=== PATIENT | male | born 1990 | race Caucasian/White ===

== ENCOUNTER 2018-08-04 11:33 | Emergency (ER) | payer SELFPAY ==
[~2018-08-04] VITALS: Ht 175.3 cm; Wt 60.5 kg
[2018-08-04 11:53] VITALS: BP 108/59
[2018-08-04] MEDS ORDERED: FLUORESCEIN OPHTHALMIC 1 MG STRIP ONE (12:20)
[2018-08-04] MEDS ORDERED: PROPARACAINE OPHTH 0.5%, 15ML ONE (12:20)
[2018-08-04] MEDS ORDERED: PROPARACAINE OPHTH 0.5%, 15ML EACHEYE ONE (12:30)
[2018-08-04] MEDS ORDERED: FLUORESCEIN OPHTHALMIC 1 MG STRIP EACHEYE ONE (12:30)
--- NOTE | 2018-08-04 12:44 | NUR ---
EYES BURNING AND BOTHERS PT GOING OUTDOORS SINCE SUNDAY. PA EVAL OF EYES WITH WILEY LAMP COMPLETED.
== END 2018-08-04 13:04 | disposition home or self-care (01) ==
LOC: ED 12:17
DX: H10.13 Acute atopic conjunctivitis, bilateral (principal)
CPT/HCPCS: 99283